=== PATIENT | male | born 1975 | race African-American/Black ===

== ENCOUNTER 2017-02-16 12:18 | Emergency (ER) | payer OTHER ==
[2017-02-16 12:26] VITALS: BP 150/92; PULSE 92; TEMP 98; BMI 26.9
--- NOTE | 2017-02-16 13:51 | PDOC ---
History of Present Illness - General Chief Complaint: Pain Stated Complaint: BACK PAIN Time Seen by Provider: 02/16/17 13:14 - History of Present Illness Initial Comments: 02/16/17 13:47 CHIEF COMPLAINT: back pain HISTORY OF PRESENT ILLNESS: 41 yo M with no PMH [facility] "[facility]." Patient reports that the ceiling in his apartment fell on his back when he was sleeping a few days ago and he was trying to "deal with it" but the pain has worsened. 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 Patient denies any loss of consciousness, vomiting, or injury to any other part of his body. No recent travel or sick contacts. PAST MEDICAL HISTORY: Denies past medical history FAMILY HISTORY: Denies SOCIAL HISTORY: Denies tobacco, alcohol, illicit drug use. SURGICAL HISTORY: Denies ALLERGIES: No known drug allergies REVIEW OF SYSTEMS General/Constitutional: Denies fever or chills. Denies weakness, weight change. HEENT: Denies change in vision. Denies ear pain or discharge. Denies sore throat. Cardiovascular: Denies chest pain or shortness of breath. Respiratory: Denies cough, wheezing, or hemoptysis. Gastrointestinal: Denies nausea, vomiting, diarrhea or constipation. Denies rectal bleeding. Genitourinary: Denies dysuria, frequency, or change in urination. Musculoskeletal: Lower back pain. Denies joint or muscle swelling or pain. Denies neck or back pain. Skin and breasts: Denies rash or easy bruising. Neurologic: Denies headache, vertigo, loss of consciousness, or loss of sensation. PHYSICAL EXAM General Appearance: Well-appearing, appropriately dressed. No apparent distress , no intoxication. HEENT: EOMI, PERRLA, normal ENT inspection, normal voice, TMs normal, pharynx normal. No conjunctival pallor. No photophobia, scleral icterus. Neck: No tenderness to cervical spine. Supple. Trachea midline. No tenderness, rigidity, carotid bruit, stridor, lymphadenopathy, or thyromegaly. Respiratory/Chest: Lungs CTAB. Cardiovascular: RRR. S1, S2. Gastrointestinal/Abdominal: Normal bowel sounds. Abdomen soft, non-distended. No tenderness or rebound tenderness. No organomegaly, pulsatile mass, guarding , hernia, hepatomegaly, splenomegaly. Musculoskeletal/Extremities: Left lower back tenderness. No midline tenderness to thoracic or lumbar spine. Normal inspection. FROM of all extremities, normal capillary refill. Pelvis Stable. No CVA tenderness. No tenderness to extremities, pedal edema, swelling, erythema or deformity. Integumentary: Appropriate color, dry, warm. No cyanosis, erythema, jaundice or rash Neurologic: security services manager II-XII intact. Fully oriented, alert. Appropriate mood/affect. Motor strength 5/5. No appreciable EOM palsy, facial droop or sensory deficit. Past History - Past Medical History Allergies/Adverse Reactions: Allergies Allergy/AdvReac Type Severity Reaction Status Date / Time No Known Allergies Allergy Verified 02/16/17 12:26 Home Medications: Ambulatory Orders NK [No Known Home Medication] 02/16/17 - Psycho/Social/Smoking Cessation Hx Suicidal Ideation: No Smoking History: Never smoked Information on smoking cessation initiated: No *Physical Exam - Vital Signs Last Vital Signs Temp Pulse Resp BP Pulse Ox 98 F 92 H 18 150/92 99 02/16/17 12:22 02/16/17 12:22 02/16/17 12:22 02/16/17 12:22 02/16/17 12:22 Medical Decision Making - Medical Decision Making 02/16/17 14:08 41 yo M with no PMH [facility] with [facility] pain x "few days." Patient had negative x-ray per [facility] discharge papers, no indication for further imaging. 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 Advised patient to f/u with ortho if symptoms persist; patient verbalized understanding and agrees to plan. *DC/Admit/Observation/Transfer Diagnosis at time of Disposition: Low back pain Qualifiers: Chronicity: acute Back pain laterality: left Sciatica presence: without sciatica Qualified Code(s): M54.5 - Low back pain - Discharge Dispostion Disposition: HOME Condition at time of disposition: Stable Admit: No - Referrals Referrals: Yvon Fonseca [Primary Care Provider] - Francisco J Wilson MD [Staff Physician] - - Patient Instructions Printed Discharge Instructions: DI for Low Back Pain Additional Instructions: Please apple picking supervisor the medications and take as prescribed by [facility]. As discussed, do not drive or operate machinery while taking cyclobenzaprine. If symptoms persist, please follow-up with orthopedics as we discussed. If you experience any loss of sensation, numbness, or tingling to your lower extremities, or any loss of bowel or bladder function, please return to ER.
[2017-02-16] MEDS ORDERED: KETOROLAC TROMETHAMINE 60 MG/2 ML VIAL ONE (13:55)
[2017-02-16] MEDS ORDERED: KETOROLAC TROMETHAMINE 60 MG/2 ML VIAL IM ONE (14:02)
== END 2017-02-16 14:12 | disposition home or self-care (01) ==
LOC: JERFT 12:18
PROC: 3E0233Z Introduction of Anti-inflammatory into Muscle, Percutaneous Approach (ICD-10-PCS; principal; 2017-02-16)
DX: M54.5 Low back pain (principal); W20.1XXA Struck by object due to collapse of building, initial encounter; Y93.89 Activity, other specified; Y92.032 Bedroom in apartment as the place of occurrence of the external cause; Y99.8 Other external cause status
CPT/HCPCS: 96372; 99281-25